=== PATIENT | male | born 1965 | race Caucasian/White ===

== ENCOUNTER 2020-01-27 13:15 | Outpatient (CLI) | payer MEDICAID | END 2020-01-27 15:15 | disposition home or self-care (01) | LOC: PAN 13:15 | DX: Z00.00 Encounter for general adult medical examination without abnormal findings (principal) | CPT/HCPCS: G0463 ==

== ENCOUNTER 2020-05-04 13:01 | Outpatient (CLI) | payer MEDICAID ==
[2020-05-04 13:15] VITALS: BP 137/94
--- NOTE | 2020-05-04 13:33 | General Progress Note ---
Subjective ROS Limited/Unobtainable: Yes Allergies: Coded Allergies: GRASS POLLEN (Verified Allergy, Unknown, 02/01/20) TOMATO (Verified Allergy, Unknown, 02/01/20) Uncoded Allergies: SEAFOOD (Allergy, Unknown, 02/01/20) Objective Last 24 Hour Vital Signs Date Time Temp Pulse Resp B/P (MAP) Pulse Ox O2 Delivery O2 Flow Rate FiO2 05/04/20 13:15 97.9 68 16 137/94 97 General Appearance: no apparent distress EENT: normal ENT inspection Neck: supple Cardiovascular: normal rate Respiratory/Chest: decreased breath sounds Abdomen: normal bowel sounds, non tender, soft Extremities: non-tender Assessment/Plan Assessment/Plan: HP + gastritis one colon polyp hemorrhoids treat for HP RTC 3 months repeat colon in 5 years Neel Mercado MD May 04, 2020 13:33
== END 2020-05-04 14:36 | disposition home or self-care (01) ==
LOC: PAN 13:01
DX: K29.70 Gastritis, unspecified, without bleeding (principal); B96.81 Helicobacter pylori [H. pylori] as the cause of diseases classified elsewhere; K63.5 Polyp of colon; K64.9 Unspecified hemorrhoids; Z91.013 Allergy to seafood; Z91.018 Allergy to other foods
CPT/HCPCS: 99212